=== PATIENT | male | born 1990 | race Caucasian/White ===

== ENCOUNTER 2018-10-23 14:25 | Day surgery (SDC) | payer OTHER ==
[~2018-10-23 14:25] MED LIST: Dexamethasone 20 MG/5 ML VIAL ONE; Glycopyrrolate 0.2 MG/ML 5 ML SYRINGE ONE; Iopamidol 370 76% 100 ML VIAL ONE; Iopamidol 370 76% 50 ML VIAL FS ONE; Lidocaine 1% PF 5 ML VIAL ONE; Ondansetron PF 4 MG/2 ML Vial ONE; PROPOFOL 200 MG/20 ML VIAL ONE; Rocuronium Bromide 10 MG/ML (10ML VIAL) ONE
[2018-10-23 15:41] LABS: #Lymphocytes 1.8 thou/uL (1.20-3.40); #Monocytes 0.7 thou/uL (0.11-0.59); #Neutrophils 6.4 thou/uL (1.40-6.50); %Basophils 0.5 % (0.0-1.0); %Eosinophils 0.5 % (0.0-10.0); %Monocytes 7.6 % (0.0-10.0); %Neutrophils 71.4 % (42.0-75.0); Hemoglobin 16.3 g/dL (14.0-18.0); Mean Corpuscular HGB CONC 34.1 g/dL (32.0-36.0); Mean Corpuscular Volume 90.9 fL (78.0-98.0); Mean Platelet Volume 7.7 fL (7.4-10.4); Platelet Count 187 thou/uL (130-400); RBC Distribution Width 11.6 % (11.5-14.5); Red Blood Cell (RBC) Count 5.25 mill/uL (4.70-6.10); White Blood Cell (WBC) Count 8.9 thou/uL (4.8-10.8)
[2018-10-23 15:55] LABS: ALT (SGPT) 84 U/L (8-55); AST (SGOT) 39 U/L (5-34); Albumin 4.7 g/dL (3.5-5.0); Alkaline Phosphatase 92 U/L (40-150); Anion Gap 13 mmol/L (10-20); BUN (Urea Nitrogen) 12 mg/dL (8.9-20.6); Bilirubin, Total 1.8 mg/dL (0.2-1.2); Calc. Creatinine Clearance 0 mL/min (70-130); Calcium 10.5 mg/dL (7.8-10.44); Carbon Dioxide 27 mmol/L (22-29); Chloride 100 mmol/L (98-107); Estimated GFR-MDRD Greater than 90; Globulin 3.3 g/dL (2.4-3.5); Glucose 98 mg/dL (70-105); Lipase 31 U/L (8-78); Sodium 136 mmol/L (136-145)
--- NOTE | 2018-10-23 18:34 | CT ---
ABDOMEN AND PELVIC CT SCAN WITH IV CONTRAST: 10/23/18 HISTORY: Right lower quadrant pain. COMPARISON: None. FINDINGS: Lung bases are clear. The visualized liver, gallbladder, pancreas, spleen, adrenal glands show no sig nificant acute process. No renal calculus or obstruction. There is an abnormal thick walled dilate d appendix up to 1.1 cm with some periappendiceal fat stranding, evidence for acute appendicitis. No evidence for a drainable abscess. IMPRESSION: Evidence for acute appendicitis. Small umbilical fat containing hernia. Findings discussed with Dr. Valverde at 6:10 p.m. Code CR POS: [facility]
[2018-10-23] MEDS ORDERED: cefTRIAXone\\ROCEPHIN 1 GM VIAL ONE (18:36)
[2018-10-23] MEDS ORDERED: metroNIDAZOLE 500 MG in Premix Bag 1 BAG IVPB ONE (19:00)
[2018-10-23] MEDS ORDERED: Bupivacaine/Epinephrine 0.25% 30 ML VIAL ONE (19:47)
--- NOTE | 2018-10-23 20:25 | HP ---
CHIEF COMPLAINT: Abdominal pain. HISTORY: Mr. Stone is a 28-year-old man who presented to the emergency room with abdominal pain since last night. He states that at first he thought it was just constipation and that he had some bowel movement and got a little better, but then got worse and moved to his right lower quadrant. He denies any nausea, vomiting, fevers, or chills. He does not have any urinary symptoms. He does drink daily on 10 to 12 shots. He mostly drinks at night to help himself sleep. He does have a history of alcohol withdrawal and shakes in the past, but none recently since he has not been cutting back on his drinking. He was eating and drinking throughout the day until he came into the emergency room. The pain is sharp in quality and does not radiate. Cannot identify any definite triggers or alleviating. He declines pain medication in the emergency room. PAST MEDICAL HISTORY: Ongoing alcohol abuse and hypertension. He states that in the past when he has stopped drinking, the high blood pressure goes away as well. PAST SURGICAL HISTORY: Right shoulder surgery in 2008. FAMILY HISTORY: Noncontributory. MEDICATIONS: None. He did receive Rocephin and Flagyl in the emergency room. SOCIAL HISTORY: Significant alcohol abuse and history of withdrawal. No drug use or smoking. REVIEW OF SYSTEMS: Ten-system review of systems is negative except per HPI. He denies any chronic postprandial pain or nausea. PHYSICAL EXAMINATION: VITAL SIGNS: Blood pressure is elevated at 156/100, temperature 98.4, respiratory rate 16, 99% saturated on room air. Heart rate initially 93 which has come down somewhat since he was admitted and is now in the 80s. GENERAL: Reveals a healthy-appearing young man, in no acute distress. He has a caridad complexion, but does not appear flushed or toxic. He is not diaphoretic. He is not jaundiced or icteric. HEENT: Unremarkable. NECK: Supple without lymphadenopathy or thyroid nodules. HEART: Regular in its rate and rhythm without murmurs, rubs, or gallops. LUNGS: Clear to auscultation bilaterally. ABDOMEN: Soft and nondistended without palpable masses or hernias. He is tender to palpation in the right lower quadrant and has some referred pain to the right lower quadrant with palpation of the left lower quadrant. He does not exhibit rigidity, rebound, or guarding. EXTREMITIES: Warm and well perfused without edema. NEUROLOGIC: No focal deficits. PSYCHIATRIC: Alert, oriented, and appropriate. LABORATORY DATA: White count is normal at 8.9, 71% segmented neutrophils. Electrolytes are unremarkable. Calcium is slightly high at 10.5. Bilirubin is elevated at 1.8. AST and ALT are 39 and 84. Lipase is normal. DIAGNOSTIC STUDIES: CT images are reviewed, and I agree with the written report. The patient has enlarged appendix with periappendiceal stranding. No evidence of periappendiceal abscess or perforation. The gallbladder looks grossly normal as well as the liver. ASSESSMENT: Acute appendicitis. PLAN: Laparoscopic appendectomy. The diagnosis and procedure were discussed in detail with the patient including inherent risks of surgery. These include, but are not limited to, bleeding, infection, risks of anesthesia, damage to nearby structures including bowel, blood vessels and bladder, need for open surgery, and need for other procedures. He understands, accepts these risks and wishes to proceed. He has been posted for the operating room for this. His LFTs are mildly elevated, which may be due to alcohol, but I am going to do a bedside ultrasound. I recommend that he will follow up with his primary care doctor. He is planning to see somebody for this. Job ID: [id number]
[2018-10-23] MEDS ORDERED: Fentanyl 100 MCG/2 ML VIAL ONE (20:31)
[2018-10-23] MEDS ORDERED: Midazolam HCl 2 mg/2 ml Vial ONE (21:07)
--- NOTE | 2018-10-23 22:17 | PDOC.OP ---
Operative Note - Operative Note Operative Note: PROCEDURE: Laparoscopic appendectomy. SURGEON: Ana Oliver M.D. DATE OF PROCEDURE: 10/23/2018. PREOPERATIVE DIAGNOSIS: Appendicitis. POSTOPERATIVE DIAGNOSIS: Appendicitis. HISTORY: 28-year-old man who presented with signs and symptoms concerning for appendicitis. CT scan showed evidence of acute appendicitis and laparoscopic appendectomy was recommended. DESCRIPTION OF PROCEDURE: After informed consent was obtained and appropriate antibiotics continued, the patient was taken to the operating room and placed in the supine position and general endotracheal anesthesia was administered. The bladder was decompressed with a Jansen catheter and the abdomen was prepped and draped in the standard sterile fashion. Local anesthesia was infused to the skin and subcutaneous tissues superior to the umbilicus. A transverse skin incision was made and a Veress needle placed into the abdominal cavity and carbon dioxide gas insufflated without difficulty. Opening pressure was less than 5. Carbon dioxide gas was insufflated to an intra-abdominal pressure 15 and the patient tolerated this well. The Veress needle was withdrawn and a [place] port advanced under direct laparoscopic vision into the abdominal cavity. Two additional ports were placed in the suprapubic and left lateral abdomen under direct laparoscopic vision after local anesthesia was infused at these sites. There were no significant adhesions. The appendix was identified and appeared inflamed but not perforated. The appendix was grasped by the mesoappendix and elevated. The mesoappendix was then sequentially ligated and divided down to the base of the appendix, which was normal in appearance and was clearly seen to be at the confluence of the tenia. Two Endoloops were placed around the base of the appendix and the appendix was divided between these Endoloops, placed into an EndoCatch bag and drawn out through the suprapubic incision. The suprapubic trocar was then replaced and the operative site was easily irrigated to clear. The suprapubic trocar was removed and the fascia closed under direct laparoscopic vision with a 0 Vicryl suture on a GraNee needle with excellent technical result. The left lateral trocar was then removed and hemostasis verified. Carbon dioxide gas was desufflated through the umbilical trocar which was then removed. The fascia at the umbilicus was clearly visible and was closed under direct vision with 0 Vicryl suture on a UR 6 needle. The skin incisions were irrigated and additional local anesthesia infused at each site. The skin was closed with 4-0 subcuticular Monocryl sutures and Dermabond dressings were placed. The patient was extubated and taken to the recovery room in good condition. Estimated blood loss was minimal. There were no complications. SPECIMEN: Appendix.
== END 2018-10-23 22:56 | disposition home or self-care (01) ==
LOC: ERS 14:25 → SDC/OP 19:01
PROVIDERS: ATTEND Surgery
PROC: 0DTJ4ZZ Resection of Appendix, Percutaneous Endoscopic Approach (ICD-10-PCS; principal; 2018-10-23)
DX: K35.30 Acute appendicitis with localized peritonitis, without perforation or gangrene (principal); F10.10 Alcohol abuse, uncomplicated; I10 Essential (primary) hypertension; Z88.5 Allergy status to narcotic agent; Z79.82 Long term (current) use of aspirin
CPT/HCPCS: 74177; 80053; 83690; 85025; 88304; 93005; 96365; 96375; J0696; J1100; J2001; J2250; J2405; J2704; J3010; Q9967